=== PATIENT | female | born 1970 | race African-American/Black ===

== ENCOUNTER 2021-07-20 07:07 | Observation (INO) | payer BC, SELFPAY ==
[2021-07-20] VITALS (7 sets, daily range): BP systolic 136–171; BP diastolic 81–95; PULSE 59–80; RESP 14–18; TEMP 36–36.9; O2SAT 94–98; BMI 25.8; BMI 34.0
--- NOTE | 2021-07-20 | HERN_PTH ---
PATIENT: YUDITH GAMBINO LOC: MS3 U#:[id number] AGE/SX: 50/F ROOM: MD322 RE07/20/[address]: Dr. Akiko Suarez MD : 1970 BED: 1 DIS: 07/20/2021 SPEC #: [id number] RECD: 07/21/21 06:58 STATUS: TUNG JOE #: [id number] JANA: 07/20/21 00:[address]: Akiko Suarez DEPT: SURGICAL PATHOLOGY RECD BY: Sai Blackburn ENTERED: 07/21/21 09:07 SP TYPE: Hernia OTHR DR: No Primary Care Phys Tissues: HERNIA Procedures: Surgery Specimen Level II HEADER OPERATION: Incarcerated umbilical hernia repair PRE-OP DIAGNOSIS: Umbilical hernia with obstruction TISSUE SUBMITTED: Hernia sac MICROSCOPIC DIAGNOSIS Hernia sac: Fragments of fibroadipose and fibroconnective tissue consistent with hernia sac with focal area of hemorrhage and chronic inflammation. SJ:jailene 07/24/2021 MICROSCOPIC DESCRIPTION Slides are reviewed. GROSS DESCRIPTION Received in fixative is one container labeled with the patient's name and designated hernia sac. The specimen consists of two pieces of soft tissue measuring 6 x 4 x 2 cm and 4 x 1 x 1 cm. No obvious mass lesion is identified. Sections reveal congested and hemorrhagic cut surfaces. Emergency Manager sections are submitted in five cassettes. / SJ:jailene 07/21/21 TC:5 CPT: 29086
--- NOTE | 2021-07-20 07:49 | EDS_ITS ---
HPI HPI - GI History of Present Illness Chief Complaint: Nausea/Vomiting Informant: patient and spouse/S.O. Abdominal Pain/Flank Pain Onset: Days (2-3) Context: Gradual Onset Timing: Continuous Quality: - (sore) Location: - (umbilicus) Current Severity: Mild Maximum Severity: Severe Worsened by: - (vomiting) Relieved by: Nothing Nausea/Vomiting/Emesis GI Symptom: Positive for Nausea and Vomiting Onset: Days (2) Quality: Positive for Nonbilious; Negative for Blood streaks, Coffee ground and Hematemesis Severity: Moderate (not nauseated now) Diarrhea/Melena/Hematochezia GI Symptom: Positive for - (Last bowel movement 3 days ago); Negative for Diarrhea, Melena and Hematochezia Associated Symptoms Associated Symptoms: Negative for Dysuria, Frequency, Hematuria and Urgency Narrative Narrative: Healthy 50-year-old has noticed an umbilical hernia for the past 5 or 6 years but it has never bothered her until it became more prominent 2 or 3 days ago, which is the day the last bowel movement she had was. She saw urgent care within the last day or 2, confirmed that it was a hernia so that she could get a referral to a surgeon. However she has been in more discomfort and had more vomiting since then so presents that reevaluated today. [facility] Medical History (Updated 07/20/21 @ 13:[address] Taco Osman MD) Hernia Medical History no medical history no medical history Home Medications NK 07/20/21 [History Last Taken Unknown] Allergy/AdvReac Type Severity Reaction Status Date / Time No Known Allergies Allergy Verified 07/20/21 07:10 Surgical History no surgical history no surgical history Social History Smoking Status: Never smoker ROS ROS ED Constitutional Constitutional ED: Denies chills or fever(s) Eyes Eyes: Denies change in vision or diplopia ENT ENT ED: Denies rhinorrhea or sore throat Cardiovascular Cardiovascular: Denies chest pain or palpitations Respiratory/Chest Respiratory/Chest: Denies cough or dyspnea Gastrointestinal Gastrointestinal: Reports as per HPI, abdominal pain, nausea and vomiting; Denies diarrhea Genitourinary Genitourinary ED: Denies dysuria or hematuria Musculoskeletal Musculoskeletal: Denies back pain or neck pain Integumentary Denies abscess or rash Neurologic Neurologic: Denies headache(s), paresthesias or weakness Psychiatric Psychiatric: Denies anxiety or suicidal thoughts EXAM Physical Exam Const Vital Signs: 07/20/21 07:08 07/20/21 12:00 Temperature 96.8 F L Temperature Source Temporal Pulse Rate 79 Respiratory Rate 16 14 Blood Pressure 145/92 H Blood Pressure Mean 109 Pulse Ox 98 Oxygen Delivery Method Room Air Positive well nourished and well developed General Appearance ED: well developed and NAD HEENT Reports moist mucous membranes normocephalic and atraumatic Eyes PERRL and EOMs intact bilaterally Neck full ROM and supple Resp normal respiratory effort and clear to auscultation bilaterally Cardio regular rate, regular rhythm and no murmurs GI non-distended Auscultation: normoactive bowel sounds Palpation: soft, tender other (At and around umbilicus where there is a nonreducible hernia that is prominent and mildly erythematous over the skin) and hernia umbilical; Negative for guarding or rebound tenderness present Back/Spine no CVA tenderness General Back: other FROM Extremity normal to inspection General Extremety ED: Negative for edema, pulses abnormal or tenderness General Extremity: Negative for edema or pulses abnormal Neuro oriented x3, CN's II-XII intact bilaterally and no sensory deficits noted Sensorium / Orientation: awake and alert Motor Exam: strength 5/5 throughout Skin no rashes or lesions noted and no wounds MDM MDM MDM Narrative Medical decision making narrative: Work-up is consistent with an acute small bowel obstruction due to the umbilical hernia. Patient initially declined analgesics. She was given nausea medication as she became nauseated after she drank the contrast. She was given 2 different doses, 1 before and [address] Suarez on-call for surgery for admission. Lab Data Attestation: I reviewed the patient's lab results. Labs: Laboratory Results - last 24 hr 07/20/21 07/20/21 07/20/21 07:55 07:55 10:45 WBC 14.9 H RBC 4.93 Hgb 15.1 H Hct 44.7 MCV 90.7 MCH 30.6 MCHC 33.8 RDW Std Deviation 46.4 H RDW Coeff of Sai 13.7 Plt Count 251 MPV 10.2 Immature Gran % (Auto) 0.400 Neut % (Auto) 90.2 H Lymph % (Auto) 6.3 L [place] % (Auto) 3.0 Eos % (Auto) 0.0 Baso % (Auto) 0.1 Absolute Neuts (auto) 13.4 H Absolute Lymphs (auto) 0.94 Nucleated RBC % 0 Sodium 139 Potassium 3.7 Chloride 102 Carbon Dioxide 28.0 Anion Gap 9 BUN 16 Creatinine 0.74 Estim Creat Clear Calc 90.73 Est GFR (MDRD) Af Amer 107 Est GFR (MDRD) Non-Af 88 BUN/Creatinine Ratio 21.8 H Glucose 120 H Calcium 9.6 Total Bilirubin 1.10 H AST 20 ALT 31 Alkaline Phosphatase 83 Total Protein 8.3 H Albumin 3.9 Globulin 4.4 H Albumin/Globulin Ratio 0.9 Lipase 105 Urine Color Yellow Urine Clarity Clear Urine pH 6.5 Ur Specific [place] 1.015 Urine Protein 15 H Urine Glucose (UA) Normal Urine Ketones 50 H Urine Occult Blood 10 H Urine Nitrite Negative Urine Bilirubin Negative Urine Urobilinogen Normal Ur Leukocyte Esterase 100 H Urine RBC 0 SEEN Urine WBC 0-5 SEEN Ur Squamous Epith Cells 0-5 SEEN Urine Bacteria 1+ Urine Mucus 0 SEEN Radiography Diagnostic Testing: Clinical Impression(s) from Imaging Studies Abdomen/Pelvis CT 07/20/21 10:00 IMPRESSION: Small bowel obstruction due to an umbilical hernia containing a small bowel loop. Increased markings at the lung bases worse at the right lung base suggestive of either atelectasis and/or early infiltrate. Electronically Signed: Dewayne Mendoza MD at 10:18 EDT , Service support , Discharge Plan Triage Chief Complaint: Nausea/Vomiting ED Provider: Taco Osman Dx/Rx/DC Orders Clinical Impression: Hernia, umbilical, with obstruction, Small bowel obstruction Prescriptions: No Action NK RF: 0 Primary Care Provider: Care Physician,No Primary Referrals: Care Physician,No Primary [Primary Care Provider] - Disposition Disposition: [facility]
[2021-07-20] MEDS: Ondansetron 4 MG/2 ML Vial IV (08:00)
[2021-07-20] MEDS: 0.9% Normal Saline 1,000 ML 250 ML IV (08:00)
[2021-07-20 08:07] LABS: Absolute Lymphocyte Count 0.94 X10^3/uL (0.83-4.51); Absolute Neutrophil Count 13.4 X10^3/uL (2.0-7.7); Basophil# 0.02 X10^3/uL; Basophil% 0.1 % (0-1); Hematocrit 44.7 % (37-47); Hemoglobin 15.1 g/dL (12.0-15.0); Lymphocyte # 0.94 X10^3/ul (0.83-4.51); Lymphocyte % 6.3 % (19-41); Mean Corp Hgb Conc 33.8 g/dL (32-36); Mean Corpuscular Hgb 30.6 pg (27.0-32.0); Mean Corpuscular Volume 90.7 fL (81-99); Mean Platelet Vol. 10.2 fl (6.2-12.0); Monocyte# 0.45 X10^3/uL; NRBC Flagged by Analyzer 0 % (0-5); Neutrophil # 13.41 X10^3/uL (2.7-7.7); Neutrophil % 90.2 % (47-70); Platelet Count 251 K/mm3 (150-450); RBC Distribution Width CV 13.7 % (11.6-14.6); RBC Distribution Width SD 46.4 fl (35.1-43.9); Red Blood Count 4.93 M/mm3 (4.2-5.4); White Blood Count 14.9 K/mm3 (4.4-11.0)
[2021-07-20 08:26] LABS: ALB/GLOB Ratio 0.9 RATIO (0.9-2.4); AST(SGOT) 20 U/L (15-37); Alanine Aminotransfer ALT/SGPT 31 U/L (13-56); Albumin, Serum 3.9 g/dL (3.2-5.0); Alkaline Phosphatase 83 U/L (45-117); Anion Gap 9 (5-15); BUN 16 mg/dL (7-18); BUN/Creat Ratio 21.8 RATIO (10-20); Calcium,Total 9.6 mg/dL (8.5-10.1); Chloride 102 mmol/L (98-107); Creatinine, Serum 0.74 mg/dL (0.55-1.02); EST Glomerular Filtration Rate 88 mL/min (>60); Est Glom Filt Rate - Afr Amer 107 mL/min (>60); Estimated Creatinine Clearance 90.73 ml/min; Globulin 4.4 g/dL (2.2-4.2); Glucose 120 mg/dL (74-106); Lipase 105 U/L (73-393); Potassium 3.7 mmol/L (3.5-5.1); Protein, Total 8.3 g/dL (6.4-8.2); Sodium Level 139 mmol/L (136-145)
[2021-07-20] MEDS: Metoclopramide 10 MG/2 ML Vial 5 MG IV (09:02)
--- NOTE | 2021-07-20 10:00 | CT_ITS ---
STUDY: CT ABDOMEN AND PELVIS WITH CONTRAST REASON FOR EXAM: Female, 50 years old. Vomiting, umbilical hernia -- IV PO Contrast RADIATION DOSAGE (If Supplied By Facility): CTDIvol = ( 15.94 ) mGy, DLP = ( 1021.21 ) mGycm TECHNIQUE: Transaxial images were obtained from the dome of the diaphragm to the symphysis pubis with oral contrast. Oral and amp; IV Gastrografin and amp; 100mL Isovue-300 was administered. Sagittal and coronal images were reconstructed. Individualized dose optimization techniques were used for this CT. COMPARISON: None. FINDINGS: Mild degree of increased markings at the lung bases worse on the right side. This may represent either atelectasis and/or early right lower lobe infiltrate. Clinical correlation is recommended. The visualized portions of the heart are within normal limits. Normal liver. Normal gallbladder and extrahepatic biliary system. Normal spleen. Normal pancreas. Normal bilateral adrenal glands. Normal right kidney. Normal left kidney. Normal visualized stomach. Mild degree of the dilated small bowel loops due to an umbilical hernia containing a small bowel loop. Mild degree of increased markings in the mesenteric fat of the root of the mesentery. Normal colon. The appendix is visualized and appears normal. There is scattered atherosclerotic calcification of the abdominal aorta, without a demonstrated aneurysm. Normal inferior vena cava. Normal retroperitoneum. Normal urinary bladder. Moderate sized hiatal hernia. The hernia contains a mildly dilated and fluid-filled small bowel loop. There are mild degenerative changes of the visualized lumbar spine. CT/Abdomen/Pelvis WITH Contrast IMPRESSION: Small bowel obstruction due to an umbilical hernia containing a small bowel loop. Increased markings at the lung bases worse at the right lung base suggestive of either atelectasis and/or early infiltrate. Electronically Signed: Dewayne Mendoza MD at 10:18 EDT , Service support ,
[2021-07-20 10:56] LABS: Mucous, Urine 0 SEEN /hpf (<or=2+); Red Blood Cells-Urine 0 SEEN /hpf (0-5)
[2021-07-20 11:00] LABS: Color, Urine Yellow (Yellow); Glucose, Dipstick Normal (Normal); Ketone-Dipstick 50 mg/dl (Negative); Leukocyte Esterase-Dipstick 100 /ul (Negative); Nitrite-Dipstick Negative (Negative); Occult Blood-Urine 10 /ul (Negative); Protein-Dipstick 15 mg/dl (Negative); Specific Gravity, Urine 1.015 (1.002-1.030); Urine Bilirubin Dipstick Negative (Negative); Urine Clarity Clear (Clear); Urine Urobilinogen Normal (Normal); Urine pH 6.5 (5.0 - 8.0)
[2021-07-20 11:08] LABS: Bacteria 1+ /hpf (None Seen); Squamous Epithelial Cells - UA 0-5 SEEN /hpf (5-10); White Blood Cells 0-5 SEEN /hpf (0-5)
--- NOTE | 2021-07-20 13:32 | NURSING ---
MED SURG AYDE SBO DUE TO UMB HERNIA
--- NOTE | 2021-07-20 15:12 | EKG12_ITS ---
Test Reason : PREOP Blood Pressure : / mmHG Vent. Rate : 064 BPM Atrial Rate : 064 BPM P-R Int : 138 ms QRS Dur : 092 ms QT Int : 430 ms P-R-T Axes : 033 006 021 degrees QTc Int : 443 ms Normal sinus rhythm Normal ECG Confirmed by GALLITO HOOKS, CHANDU ([id number]), editor publications JOSSELINE CHILDS ([id number]) on 07/25/2021 8:34:34 AM Referred By: AYDE Confirmed By:CHANDU CONTI MD
--- NOTE | 2021-07-20 15:23 | PCM.HP.STD ---
HPI - General General Date of Admission: 07/20/21 HPI Narrative YUDITH GAMBINO, is a 50 F who presents with incarcerated umbilical hernia. She notes severe pain at the site on Saturday. Has had nausea and emesis since. Notes severe painful bulge in the area. Denies previous surgery in the area. Presented to [facility] ED today. CT scan reveal small bowel obstruction due to umbilical hernia. [facility] Medical History Hernia Medical History no medical history Home Medications NK 07/20/21 [History Last Taken Unknown] Allergy/AdvReac Type Severity Reaction Status Date / Time No Known Allergies Allergy Verified 07/20/21 07:10 Surgical History no surgical history Social History Smoking Status: Never smoker Vital Signs Vital Signs Vital Signs: 07/20/21 07:08 07/20/21 12:00 07/20/21 14:00 Temperature 96.8 F L 98.5 F Temperature Source Temporal Temporal Pulse Rate 79 59 L Respiratory Rate 16 14 16 Blood Pressure 145/92 H 169/81 H Blood Pressure Mean 109 110 Pulse Ox 98 97 Oxygen Delivery Method Room Air Room Air Weight Weight: 77.111 kg Body Mass Index (BMI) 25.8 Physical Exam Const no apparent distress Resp normal respiratory effort Cardio regular rate GI GI Narrative: umbilical hernia - incarcerated tender with skin with discoloration Extremity normal to inspection and no clubbing, cyanosis or edema Results Lab / Micro Data Result Diagrams: 07/20/21 07:55 07/20/21 07:55 Labs: Laboratory Results - last 24 hr 07/20/21 07:55: WBC 14.9 H, RBC 4.93, Hgb 15.1 H, Hct 44.7, MCV 90.7, MCH 30.6, MCHC 33.8, RDW Std Deviation 46.4 H, RDW Coeff of Sai 13.7, Plt Count 251, MPV 10.2, Immature Gran % (Auto) 0.400, Neut % (Auto) 90.2 H, Lymph % (Auto) 6.3 L, [place] % (Auto) 3.0, Eos % (Auto) 0.0, Baso % (Auto) 0.1, Absolute Neuts (auto) 13.4 H, Absolute Lymphs (auto) 0.94, Nucleated RBC % 0 07/20/21 07:55: Sodium 139, Potassium 3.7, Chloride 102, Carbon Dioxide 28.0, Anion Gap 9, BUN 16, Creatinine 0.74, Estim Creat Clear Calc 90.73, Est GFR (MDRD) Af Amer 107, Est GFR (MDRD) Non-Af 88, BUN/Creatinine Ratio 21.8 H, Glucose 120 H, Calcium 9.6, Total Bilirubin 1.10 H, AST 20, ALT 31, Alkaline Phosphatase 83, Total Protein 8.3 H, Albumin 3.9, Globulin 4.4 H, Albumin/Globulin Ratio 0.9, Lipase 105 07/20/21 10:45: Urine Color Yellow, Urine Clarity Clear, Urine pH 6.5, Ur Specific [place] 1.015, Urine Protein 15 H, Urine Glucose (UA) Normal, Urine Ketones 50 H, Urine Occult Blood 10 H, Urine Nitrite Negative, Urine Bilirubin Negative, Urine Urobilinogen Normal, Ur Leukocyte Esterase 100 H, Urine RBC 0 SEEN, Urine WBC 0-5 SEEN, Ur Squamous Epith Cells 0-5 SEEN, Urine Bacteria 1+, Urine Mucus 0 SEEN Radiology Impression Abdomen/Pelvis CT 07/20/21 10:00 IMPRESSION: Small bowel obstruction due to an umbilical hernia containing a small bowel loop. Increased markings at the lung bases worse at the right lung base suggestive of either atelectasis and/or early infiltrate. Electronically Signed: Dewayne Mendoza MD at 10:18 EDT , Service support , Assessment & Plan Assessment/Plan (1) Hernia, umbilical, with obstruction: PLAN: I have discussed with patient. Plan immediate to OR for umbilical hernia repair - reduction of small bowel. May require small bowel resection if compromised bowel. Risks of surgery, including but not limited to: infection, bleeding, injury to any blood vessels/nerves, scar tissue, injury to any intraabdominal organs, injury to kidney/ureters, injury to bowel/bladder, , intraabdominal abscess/bleeding, recurrence of hernia, wound infections, possible open procedure, complications of anesthesia, postoperative pneumonia/cardiac problems/blood clots etc. the patient understands. She agrees to proceed. I have answered all questions to the patient?s satisfaction and the patient has no further questions.
[2021-07-20] MEDS: Lactated Ringers 1,000 ML 100 ML IV ×2 (15:28→17:00)
[2021-07-20 15:53] LABS: Internal QC Validated? YES +Cl - CLEAR BKGD; Pregnancy, Urine Negative Negative
[2021-07-20] MEDS: Cefazolin 2 GM in 0.9% Normal Saline 100 ML IV (16:00)
[2021-07-20] MEDS: Lidocaine 1% /Epi 1:100 (50ml) 50 ML VIAL (16:42)
--- NOTE | 2021-07-20 16:50 | PCM.OPRPT ---
Report of Operation Date of Procedure: 07/20/21 Pre-Operative Diagnosis: umbilical hernia - incarcerated, bowel obstruction Post-Operative Diagnosis: same Surgery/Procedure Performed:: umbilical hernia repair, resection of incarcerated preperitoneal fatty tissues and hernia sac Surgeon: Akiko Suarez Type of Anesthesia: General Anesthesiologist: Murtaza Estrada Specimen's removed: hernia sac Estimated Blood Loss (mL): < 10 ml Fluids Replaced: 1000 ml RL Description of Procedure: After informed consent was obtained, the patient was brought to the Operating Room. Appropriate time out protocol was followed. She was then placed in the supine position. The patient was then placed under anesthesia. The abdomen was then prepped with a sterile surgical skin preparation. Sterile surgical drapes were placed. This skin and subcutaneous tissues were then widely infiltrated with the local anesthetic. A skin incision was then made at the umbilicus in a midline vertical fashion with a 15 blade scalpel over the hernia site. It was carried down to the subcutaneous tissues using sharp dissection. Any hemorrhage was adequately controlled with electrocautery. Blunt dissection was done to separate the subcutaneous tissues from the umbilical hernia sac. The sac once freed of the subcutaneous tissues was then freed from the undersurface of the dermis of the umbilical skin. Then the sac was then freed up from the fascial surface. The fascial defect was then properly outlined. It was small, 2 cm in maximum dimension. The sac was from the fascial opening. The sac was opened. It had incarcerated omentum and fatty tissues, but no bowel within it. The non viable tissue was resected along with the sac. Any hemorrhage was controlled with electrocautery. There appeared to be no evidence of gangrenous bowel in the intraabdominal cavity. The fascia was reapproximated transversely with figure of 8 0 PDS suture. The subcutaneous fatty tissues with Sommer's fascia was reapproximated with interrupted vicryl suture. The skin incision was then reapproximated with running 4-0 Monocryl suture. Cavilon and steristrips were placed to reinforce the skin closure and a sterile opsite dressing was applied. The patient was brought from to the Recovery Room in stable condition. Complications none noted Admit VTE Documentation VTE Present on Admission: Yes VTE Mechan Device Prophylaxis: SCD's
--- NOTE | 2021-07-20 19:24 | DCINST_ITS ---
Discharge Instructions Follow Up Care Test Results: Test results from this visit will be discussed in further detail at your follow-up appointment, if applicable. Discharge Plan Admission Admit Date/Time: 07/20/21 13:25 Attending Provider: Akiko Suarez Primary Care Provider: Valery PhysicianYa Primary Instructions Additional Instructions / Restrictions: Recommended pain control regimen - May take 600 mg ibuprofen (Motrin) and then in 3-4 hours, may take 650 mg acetaminophen (Tylenol), then in 3-4 hours may take 600 mg ibuprofen, then in 3- 4 hours may take 650 mg acetaminophen and so on for 2-3 days May take narcotic pain medication for pain that is not controlled by above and at night for comfort through the night Leave dressings in place May shower, do not scrub in the areas of the dressings as they may unravel. Do not soak - no tub baths/swimming Ice applied to areas of discomfort may help No lifting/pushing/pulling greater than 20 pounds for a month. Regular diet as tolerated, drink plenty of fluids. Avoid carbonated beverages for a few days as this will cause abdominal bloating and thus discomfort after our surgery. Take an over the counter laxative, to avoid constipation that is common after this type of surgery. Please call my office for an appointment to see me in 1-2 weeks. Office number is If any questions, please call my office at and ask the boring mill set up operator vertical for the general surgery nurses desk Discharge Orders/Prescriptions Prescriptions: New hydrocodone-acetaminophen 5-325 mg tablet 1 tab PO Q8H 3 Days Qty: 9 RF: 0 No Action NK RF: 0 Referrals / Follow Up: Care Physician,Ya Primary [Primary Care Provider] - Disposition Discharge Orders: Discharge Patient (Routine); Ordered 07/20/21 Ordered By: Dr. Akiko Suarez
== END 2021-07-20 19:45 | disposition home or self-care (01) | DRG 354 ==
LOC: ED 13:27 → MS3 13:45
PROVIDERS: Anesthesiology; Admitting Provider Surgery; Emergency Provider Emergency Medicine; Visit Provider Surgery
PROC: (CPT 49587; principal; 2021-07-20 14:45)
DX: K42.0 Umbilical hernia with obstruction, without gangrene (principal); K56.609 Unspecified intestinal obstruction, unspecified as to partial versus complete obstruction
CPT/HCPCS: 49587; 74177; 80053; 81001; 81025; 83690; 85025; 88302; 93005; 96374; 96375; 99218; 99284; J7030; J7120; Q9967; A4216; G0378; J2405

== ENCOUNTER → 2023-06-12 | Outpatient (CLI) | payer BC, SELFPAY ==
[2023-06-12 12:16] LABS: Absolute Lymphocyte Count 1.68 X10^3/uL (0.83-4.51); Absolute Neutrophil Count 3.6 X10^3/uL (2.0-7.7); Basophil# 0.04 X10^3/uL; Basophil% 0.7 % (0-1); Eosinophil# 0.03 X10^3/uL; Eosinophils% 0.5 % (0-5); Hematocrit 46.3 % (37-47); Hemoglobin 14.9 g/dL (12.0-15.0); Lymphocyte # 1.68 X10^3/ul (0.83-4.51); Lymphocyte % 29.5 % (19-41); Mean Corp Hgb Conc 32.2 g/dL (32-36); Mean Corpuscular Hgb 30.5 pg (27.0-32.0); Mean Corpuscular Volume 94.7 fL (81-99); Monocyte# 0.38 X10^3/uL; Monocyte% 6.7 % (0-10); NRBC Flagged by Analyzer 0 % (0-5); Neutrophil # 3.55 X10^3/uL (2.7-7.7); Neutrophil % 62.2 % (47-70); Platelet Count 265 K/mm3 (150-450); RBC Distribution Width CV 13.6 % (11.6-14.6); RBC Distribution Width SD 47.5 fl (35.1-43.9); Red Blood Count 4.89 M/mm3 (4.2-5.4); White Blood Count 5.7 K/mm3 (4.4-11.0)
[2023-06-12 12:46] LABS: ALB/GLOB Ratio 0.9 RATIO (0.9-2.4); AST(SGOT) 16 U/L (15-37); Alanine Aminotransfer ALT/SGPT 21 U/L (13-56); Albumin, Serum 3.8 g/dL (3.2-5.0); Alkaline Phosphatase 87 U/L (45-117); Anion Gap 2 (5-15); BUN 10 mg/dL (7-18); BUN/Creat Ratio 14.5 RATIO (10-20); Calcium,Total 9.3 mg/dL (8.5-10.1); Chloride 111 mmol/L (98-107); Cholesterol 219 mg/dL (200); Creatinine, Serum 0.69 mg/dL (0.55-1.02); EST Glomerular Filtration Rate 95 mL/min (>60); Est Glom Filt Rate - Afr Amer 115 mL/min (>60); Globulin 4.2 g/dL (2.2-4.2); Glucose 89 mg/dL (74-106); High Density Lipoprotein 45 mg/dL; Potassium 4.1 mmol/L (3.5-5.1); Sodium Level 140 mmol/L (136-145); Triglycerides 147 mg/dL; Very Low Density Lipoprotein 29 mg/dL (5-40)
== END | disposition home or self-care (01) ==
LOC: BIMLAB 10:19
PROVIDERS: PCP Internal Medicine; Referring Provider Internal Medicine; Visit Provider Internal Medicine
DX: Z00.00 Encounter for general adult medical examination without abnormal findings (principal)
CPT/HCPCS: 36415; 80053; 80061; 85025

== ENCOUNTER → 2024-03-04 | Outpatient (CLI) | payer BC, SELFPAY ==
[2024-03-04 13:32] LABS: Anion Gap 7 (5-15); BUN 14 mg/dL (7-18); BUN/Creat Ratio 19.4 RATIO (10-20); Calcium,Total 9.1 mg/dL (8.5-10.1); Chloride 110 mmol/L (98-107); Creatinine, Serum 0.72 mg/dL (0.55-1.02); EST Glomerular Filtration Rate 90 mL/min (>60); Est Glom Filt Rate - Afr Amer 108 mL/min (>60); Glucose 99 mg/dL (74-106); Potassium 4.4 mmol/L (3.5-5.1); Sodium Level 142 mmol/L (136-145)
== END | disposition home or self-care (01) ==
LOC: BIMLAB 10:11
PROVIDERS: PCP Internal Medicine; Visit Provider Internal Medicine
DX: I10 Essential (primary) hypertension (principal)
CPT/HCPCS: 36415; 80048

== ENCOUNTER → 2024-09-04 | Outpatient (CLI) | payer BC, SELFPAY ==
--- NOTE | 2024-09-04 07:24 | BI_ITS ---
MAMMOGRAPHY - BILATERAL SCREENING REASON FOR EXAM: Female, 53 years old. Routine annual screening examination. PERTINENT HISTORY: Grandmother with breast cancer. Aunt with breast cancer. TECHNIQUE: Digital bilateral breast nancy (3D mammographic acquisition) in the CC and MLO projections. 2-D mediolateral oblique (MLO) and craniocaudad (CC) views of both breasts were obtained. CAD: Full Field Digital Mammography with Computer Added Detection was performed. COMPARISON: Comparison is made with prior outside examination dated March 25, 2008. FINDINGS: Breast Composition: There are scattered areas of fibroglandular density. There are no dominant masses or suspicious calcifications. Stable bilateral axillary lymph nodes. Small benign-appearing lymph node in the upper outer quadrant of the right breast. No other significant abnormalities are identified. BI/SCRN MAMM (CAD)W/NANCY BILAT IMPRESSION: Stable bilateral screening mammogram. Yearly follow-up mammogram recommended. (A) ASSESSMENT CATEGORY: BIRADS Category 2: Benign. A letter regarding these results will be sent to the patient by the facility within 30 days. Approximately 10% of breast cancers are not detected by mammography. A normal mammogram should not delay biopsy of a clinically suspicious abnormality. [id number] Electronically Signed: Dewayne Mendoza MD at 8:26 EST ,
== END | disposition home or self-care (01) ==
LOC: OPBI 07:24
PROVIDERS: PCP Internal Medicine; Referring Provider Internal Medicine; Visit Provider Internal Medicine
DX: Z12.31 Encounter for screening mammogram for malignant neoplasm of breast (principal)
CPT/HCPCS: 77063; 77067

== ENCOUNTER → 2024-11-02 | Outpatient (CLI) | payer BC, SELFPAY ==
[2024-11-02 12:41] LABS: Absolute Lymphocyte Count 1.85 X10^3/uL (0.83-4.51); Absolute Neutrophil Count 4.2 X10^3/uL (2.0-7.7); Basophil# 0.03 X10^3/uL; Basophil% 0.5 % (0-1); Eosinophil# 0.02 X10^3/uL; Eosinophils% 0.3 % (0-5); Hematocrit 42.1 % (37-47); Hemoglobin 13.4 g/dL (12.0-15.0); Lymphocyte # 1.85 X10^3/ul (0.83-4.51); Lymphocyte % 28.2 % (19-41); Mean Corp Hgb Conc 31.8 g/dL (32-36); Mean Corpuscular Hgb 29.8 pg (27.0-32.0); Mean Corpuscular Volume 93.6 fL (81-99); Mean Platelet Vol. 11.2 fl (6.2-12.0); Monocyte% 6.1 % (0-10); NRBC Flagged by Analyzer 0 % (0-5); Neutrophil # 4.24 X10^3/uL (2.7-7.7); Neutrophil % 64.7 % (47-70); Platelet Count 241 K/mm3 (150-450); RBC Distribution Width CV 13.6 % (11.6-14.6); RBC Distribution Width SD 47.3 fl (35.1-43.9); White Blood Count 6.6 K/mm3 (4.4-11.0)
[2024-11-02 12:47] LABS: ALB/GLOB Ratio 0.9 RATIO (0.9-2.4); AST(SGOT) 21 U/L (15-37); Alanine Aminotransfer ALT/SGPT 21 U/L (13-56); Albumin, Serum 3.6 g/dL (3.2-5.0); Alkaline Phosphatase 82 U/L (45-117); Anion Gap 7 (5-15); BUN 17 mg/dL (7-18); BUN/Creat Ratio 21.1 RATIO (10-20); Calcium,Total 9.5 mg/dL (8.5-10.1); Chloride 107 mmol/L (98-107); Cholesterol 236 mg/dL (200); EST Glomerular Filtration Rate 79 mL/min (>60); Est Glom Filt Rate - Afr Amer 95 mL/min (>60); Globulin 4.2 g/dL (2.2-4.2); Glucose 80 mg/dL (74-106); High Density Lipoprotein 43 mg/dL; Potassium 3.9 mmol/L (3.5-5.1); Protein, Total 7.8 g/dL (6.4-8.2); Sodium Level 140 mmol/L (136-145); Triglycerides 173 mg/dL; Very Low Density Lipoprotein 35 mg/dL (5-40)
== END | disposition home or self-care (01) ==
LOC: BIMLAB 08:47
PROVIDERS: PCP Internal Medicine; Referring Provider Internal Medicine; Visit Provider Internal Medicine
DX: Z00.00 Encounter for general adult medical examination without abnormal findings (principal)
CPT/HCPCS: 36415; 80053; 80061; 85025

== ENCOUNTER → 2025-09-06 | Outpatient (CLI) | payer BC, SELFPAY ==
--- NOTE | 2025-09-06 07:30 | BI_ITS ---
EXAM: SCRN MAMM (CAD)W/NANCY BILAT DATE: 09/06/2025 CLINICAL HISTORY: F, Age 54 y/o , BREAST CANCER SCREENING TECHNIQUE: Procedure Code: [id number] Modality: MG Procedure: SCRN MAMM (CAD)W/NANCY BILAT COMPARISON: Prior exam(s) dated mammogram study dated 09/04/2024. FINDINGS: TISSUE DENSITY: The breasts are almost entirely fatty. Bilateral Breast Mammographic Findings: Well-circumscribed stable isodense masses are seen in both breasts. Benign round microcalcifications are seen in both breasts. No suspicious masses, suspicious clustered microcalcifications, architectural distortion or secondary signs of malignancy is identified in either breast. BI/SCRN MAMM (CAD)W/NANCY BILAT IMPRESSION: Benign screening mammogram. OVERALL FINAL ASSESSMENT BI-RADS 2: BENIGN RECOMMENDATION: Routine annual follow-up in 1 Year Additional Recommendation none A letter with findings and recommendations will be mailed to the patient. Reading Location: [id number]
== END | disposition home or self-care (01) ==
LOC: OPBI 07:35
PROVIDERS: PCP Internal Medicine; Referring Provider Internal Medicine; Visit Provider Internal Medicine
DX: Z12.31 Encounter for screening mammogram for malignant neoplasm of breast (principal)
CPT/HCPCS: 77063; 77067